=== PATIENT | male | born 1995 | race Caucasian/White ===

== ENCOUNTER 2021-12-30 18:37 | Emergency (ER) | payer MEDICARE, MEDICAID, SELFPAY ==
[2021-12-30 18:38] VITALS: BP 120/77; PULSE 84; RESP 16; TEMP 36.7; O2SAT 97; BMI 26.6
--- NOTE | 2021-12-30 19:02 | EKG12_ITS ---
Test Reason : [facility] [place] Blood Pressure : / mmHG Vent. Rate : 067 BPM Atrial Rate : 067 BPM P-R Int : 126 ms QRS Dur : 122 ms QT Int : 408 ms P-R-T Axes : 033 061 065 degrees QTc Int : 431 ms Normal sinus rhythm Septal infarct , age undetermined Abnormal ECG Confirmed by DASHAWN GONZALEZ, RINKU ([id number]), index editor BRAYDON LOPEZ ([id number]) on 12/31/2021 9:51:33 AM Referred By: Confirmed By:RINKU TAMEZ MD
[2021-12-30 19:14] LABS: Absolute Lymphocyte Count 2.37 X10^3/uL (0.83-4.51); Absolute Neutrophil Count 4.7 X10^3/uL (2.0-7.7); Basophil# 0.06 X10^3/uL; Basophil% 0.7 % (0-1); Eosinophils% 6.9 % (0-5); Hematocrit 42.4 % (40-54); Hemoglobin 13.8 g/dL (13.0-16.5); Lymphocyte # 2.37 X10^3/ul (0.83-4.51); Lymphocyte % 27.4 % (19-41); Mean Corp Hgb Conc 32.5 g/dL (32-36); Mean Corpuscular Hgb 30.3 pg (27.0-32.0); Mean Corpuscular Volume 93.2 fL (80-94); Mean Platelet Vol. 9.6 fl (6.2-12.0); Monocyte# 0.96 X10^3/uL; Monocyte% 11.1 % (0-10); NRBC Flagged by Analyzer 0 % (0-5); Neutrophil # 4.66 X10^3/uL (2.7-7.7); Neutrophil % 53.8 % (47-70); Platelet Count 253 K/mm3 (150-450); RBC Distribution Width CV 13.8 % (11.6-14.6); RBC Distribution Width SD 47.4 fl (35.1-43.9); Red Blood Count 4.55 M/mm3 (4.6-6.2); White Blood Count 8.7 K/mm3 (4.4-11.0)
[2021-12-30 19:54] LABS: Alcohol, Blood (Medical)-Serum < 3.0 mg/dL
[2021-12-30 19:58] LABS: ALB/GLOB Ratio 1.4 RATIO (0.9-2.4); AST(SGOT) 17 U/L (15-37); Alanine Aminotransfer ALT/SGPT 24 U/L (16-61); Albumin, Serum 3.8 g/dL (3.2-5.0); Alkaline Phosphatase 54 U/L (45-117); Anion Gap 5 (5-15); BUN 13 mg/dL (7-18); BUN/Creat Ratio 13.8 RATIO (10-20); Calcium,Total 8.6 mg/dL (8.5-10.1); Chloride 109 mmol/L (98-107); Creatinine, Serum 0.94 mg/dL (0.70-1.30); EST Glomerular Filtration Rate 102 mL/min (>60); Est Glom Filt Rate - Afr Amer 123 mL/min (>60); Estimated Creatinine Clearance 110.36 ml/min; Globulin 2.8 g/dL (2.2-4.2); Glucose 85 mg/dL (74-106); Potassium 4.1 mmol/L (3.5-5.1); Protein, Total 6.6 g/dL (6.4-8.2); Sodium Level 141 mmol/L (136-145)
[2021-12-30 20:02] LABS: Amphetamine Urine VISTA NEGATIVE (<1000 ng/mL); Barbiturate Urine VISTA NEGATIVE (< 200 ng/mL); Benzodiazepine Urine VISTA NEGATIVE (< 200 ng/mL); Cocaine Urine VISTA NEGATIVE (< 300 ng/mL); Ecstacy Urine VISTA NEGATIVE (< 500 ng/mL); Methadone Urine VISTA NEGATIVE (< 300 ng/mL); PCP Urine VISTA NEGATIVE (< 25 ng/mL); THC Urine VISTA NEGATIVE (< 50 ng/mL); Vista UDS pH Range 6
[2021-12-30 20:05] VITALS: PULSE 74; RESP 18; O2SAT 98
--- NOTE | 2021-12-30 20:13 | EDS_ITS ---
HPI HPI - Psych History of Present Illness Chief Complaint: Suicidal Informant: patient Narrative Narrative: 26-year-old male presents to the emergency department with suicidal ideation. Patient states that he arrived into [place] yesterday. He states that he is homeless and originally from [place]. He came to [place] from [place] yesterday by walking and hitchhiking. He states that he is caught in a perpetual cycle where he gets feeling suicidal but something keeps him from committing suicide. He states that today he thought about jumping off a bridge and he held a bottle of Vistaril which he is prescribed in his hands and thought about taking the whole bottle. He states that he drinks alcohol and occasionally uses marijuana but does not do any other illicit drugs. He states that age 17 he was diagnosed with schizophrenia and this is started his 9-year cycle. [facility] Medical History (Updated 12/30/21 @ 20:[address] Arturo Plasencia DO) Depression Schizophrenia Allergy/AdvReac Type Severity Reaction Status Date / Time No Known Allergies Allergy Verified 12/30/21 18:38 Social History (Updated 12/30/21 @ 20:[address] Arturo Plasencia DO) Smoking Status: Current every day smoker tobacco type: cigarettes alcohol intake: current alcohol intake frequency: other details: As available substance use type: marijuana ROS ROS ED Constitutional Constitutional ED: Denies chills or weight loss Eyes Eyes: Denies change in vision or diplopia ENT ENT ED: Denies ear pain, rhinorrhea or sore throat Cardiovascular Cardiovascular: Denies chest pain, orthopnea, palpitations or racing heartbeat Respiratory/Chest Respiratory/Chest: Denies cough, dyspnea or orthopnea Gastrointestinal Gastrointestinal: Denies abdominal pain, diarrhea, nausea or vomiting Genitourinary Genitourinary ED: Denies dysuria, hematuria or urinary frequency Musculoskeletal Musculoskeletal: Denies arthralgias or myalgias Integumentary Denies abscess or rash Neurologic Neurologic: Denies headache(s) or weakness Psychiatric Psychiatric: Reports depression, suicidal ideation and suicidal thoughts; Denies anxiety Endocrine Endocrinology: Denies polydipsia, polyphagia or polyuria Allergic/Immunologic Allergic/Immunologic ED: Denies mouth swelling, tongue swelling or urticaria EXAM Physical Exam Const Vital Signs: 12/30/21 18:38 12/30/21 20:05 Temperature 98.0 F Temperature Source Temporal Pulse Rate 84 74 Respiratory Rate 16 18 Blood Pressure 120/77 Blood Pressure Mean 91 Pulse Ox 97 98 Oxygen Delivery Method Room Air Room Air Positive well nourished and well developed General Appearance ED: well developed and irritable HEENT Reports normocephalic, head/scalp atraumatic and moist mucous membranes Eyes PERRL and EOMs intact bilaterally Neck no lymphadenopathy, supple and no JVD Resp normal respiratory effort and clear to auscultation bilaterally Cardio regular rate, regular rhythm and no murmurs GI normal to inspection, nondistended, normoactive bowel sounds and non-tender Palpation: soft Back/Spine no CVA tenderness and normal ROM Extremity normal to inspection General Extremety ED: Negative for edema General Extremity: Negative for edema Neuro oriented x3 and CN's II-XII intact bilaterally Sensorium / Orientation: alert Motor Exam: strength 5/5 throughout Psych mental status grossly normal Psych Narrative: Patient sits quietly when asked a question but then answers the question rather aggressively and uses vague terminology. He rarely makes eye contact with me except at the end of the statement. He admits to suicidal ideation with plan. Mood & Affect: anxious and irritable; Negative for depressed or tearful Skin no rashes or lesions noted and no wounds MDM MDM Lab Data Labs: Laboratory Results - last 24 hr 12/30/21 12/30/21 12/30/21 18:48 19:08 19:08 WBC 8.7 RBC 4.55 L Hgb 13.8 Hct 42.4 MCV 93.2 MCH 30.3 MCHC 32.5 RDW Std Deviation 47.4 H RDW Coeff of Hai 13.8 Plt Count 253 MPV 9.6 Immature Gran % (Auto) 0.100 Neut % (Auto) 53.8 Lymph % (Auto) 27.4 [place] % (Auto) 11.1 H Eos % (Auto) 6.9 H Baso % (Auto) 0.7 Absolute Neuts (auto) 4.7 Absolute Lymphs (auto) 2.37 Nucleated RBC % 0 Sodium 141 Potassium 4.1 Chloride 109 H Carbon Dioxide 27.0 Anion Gap 5 BUN 13 Creatinine 0.94 Estim Creat Clear Calc 110.36 Est GFR (MDRD) Af Amer 123 Est GFR (MDRD) Non-Af 102 BUN/Creatinine Ratio 13.8 Glucose 85 Calcium 8.6 Total Bilirubin 0.20 AST 17 ALT 24 Alkaline Phosphatase 54 Total Protein 6.6 Albumin 3.8 Globulin 2.8 Albumin/Globulin Ratio 1.4 Urine Opiates Screen NEGATIVE Urine Methadone Screen NEGATIVE Ur Barbiturates Screen NEGATIVE Ur Phencyclidine Scrn NEGATIVE Ur Amphetamines Screen NEGATIVE MDMA (Ecstasy) Screen NEGATIVE U Benzodiazepines Scrn NEGATIVE Urine Cocaine Screen NEGATIVE U Cannabinoids Screen NEGATIVE Ur Drug Screen Comment Ethyl Alcohol 12/30/21 19:08 WBC RBC Hgb Hct MCV MCH MCHC RDW Std Deviation RDW Coeff of Hai Plt Count MPV Immature Gran % (Auto) Neut % (Auto) Lymph % (Auto) [place] % (Auto) Eos % (Auto) Baso % (Auto) Absolute Neuts (auto) Absolute Lymphs (auto) Nucleated RBC % Sodium Potassium Chloride Carbon Dioxide Anion Gap BUN Creatinine Estim Creat Clear Calc Est GFR (MDRD) Af Amer Est GFR (MDRD) Non-Af BUN/Creatinine Ratio Glucose Calcium Total Bilirubin AST ALT Alkaline Phosphatase Total Protein Albumin Globulin Albumin/Globulin Ratio Urine Opiates Screen Urine Methadone Screen Ur Barbiturates Screen Ur Phencyclidine Scrn Ur Amphetamines Screen MDMA (Ecstasy) Screen U Benzodiazepines Scrn Urine Cocaine Screen U Cannabinoids Screen Ur Drug Screen Comment Ethyl Alcohol < 3.0 Discharge Plan Triage Chief Complaint: Suicidal ED Provider: Arturo Plasencia Dx/Rx/DC Orders Primary Care Provider: Care Physician,No Primary Referrals: Care Physician,No Primary [Primary Care Provider] -
[2021-12-30 21:00] VITALS: PULSE 72; RESP 18; O2SAT 99
--- NOTE | 2021-12-30 21:20 | NURSING ---
CALLED CRISIS AT 2030
[2021-12-30 22:00] VITALS: PULSE 79; RESP 17; O2SAT 98
[2021-12-30 23:00] VITALS: PULSE 79; RESP 17; O2SAT 99
[2021-12-31] VITALS: PULSE 77; RESP 17; O2SAT 99
[2021-12-31 01:00] VITALS: PULSE 74; RESP 17; O2SAT 97
[2021-12-31 05:45] VITALS: BP 114/60; PULSE 80; RESP 18; TEMP 36.7; O2SAT 97
== END 2021-12-31 06:44 ==
PROVIDERS: Emergency Provider Emergency Medicine; Visit Provider Emergency Medicine
DX: R45.851 Suicidal ideations (principal); F17.210 Nicotine dependence, cigarettes, uncomplicated; Z59.00 Homelessness unspecified; Z20.822 Contact with and (suspected) exposure to COVID-19
CPT/HCPCS: 80053; 80307; 82077; 85025; 87811; 93005; 99284